=== PATIENT | male | born 1980 | race Caucasian/White ===

== ENCOUNTER 2016-05-28 15:33 | Emergency (ER) | payer OTHER ==
[~2016-05-28] VITALS: Ht 175.3 cm; Wt 64.4 kg
[~2016-05-28 15:33] MED LIST: A/B OTIC15 ML; A/B OTIC15 ML AU; ASPIR 8181 MG PO; COL100 PO; CYMBALTA60 M1 PO; EFFER-K10 MEQ PO; MORPHINE SULFAT30 M6 PO; NOR10T PO; PROAIR; ROB750 PO; SIMVASTATIN10 M1 PO; TRAMADOL HCL50 MG PO
[2016-05-28 18:11] VITALS: BP 101/61
== END 2016-05-28 18:11 | disposition home or self-care (01) ==
LOC: ED 15:33
DX: G43.909 Migraine, unspecified, not intractable, without status migrainosus (principal); Z88.8 Allergy status to other drugs, medicaments and biological substances; Z79.51 Long term (current) use of inhaled steroids
CPT/HCPCS: J1200; J2405; J3010; J7030

== ENCOUNTER 2016-06-13 18:41 | Emergency (ER) | payer OTHER ==
[~2016-06-13] VITALS: Ht 175.3 cm; Wt 64.9 kg
[2016-06-13 21:54] VITALS: BP 97/62
== END 2016-06-13 21:54 | disposition home or self-care (01) ==
LOC: ED 18:41
DX: G43.909 Migraine, unspecified, not intractable, without status migrainosus (principal); Z79.899 Other long term (current) drug therapy; Z88.8 Allergy status to other drugs, medicaments and biological substances
CPT/HCPCS: J1200; J2270; J2405; J7030

== ENCOUNTER 2016-07-03 16:17 | Emergency (ER) | payer OTHER ==
[~2016-07-03] VITALS: Ht 175.3 cm; Wt 64.1 kg
[2016-07-03 18:29] LABS: BASOPHIL % 0.5 % (0-2); PLATELET COUNT 309 x10^3mcL (130-400); RED CELL DISTRIBUTION WIDTH 13.3 % (11.5-14.5)
[2016-07-03 18:38] LABS: CALCIUM 9.3 mg/dL (8.5-10.1); CARBON DIOXIDE 30.2 mmol/L (21-32); CHLORIDE SERUM 104 mmol/L (98-107); GFR1 > 60 mL/min; GLUCOSE SERUM 85 mg/dL (74-106); POTASSIUM SERUM 3.5 mmol/L (3.5-5.1); SODIUM SERUM 143 mmol/L (136-145)
[2016-07-03 18:42] LABS: ALBUMIN 4.3 g/dL (3.4-5.0); ALKALINE PHOSPHATASE 67 U/L (46-116); ALT/SGPT 20 U/L (16-63); AMYLASE 37 U/L (25-115); AST/SGOT 19 U/L (15-37); BILIRUBIN TOTAL 1.8 mg/dL (0.20-1.00); LIPASE 134 IU/L (73-393); TOTAL PROTEIN, SERUM 7.7 g/dL (6.4-8.2)
[2016-07-03 20:21] VITALS: BP 103/62
== END 2016-07-03 20:21 | disposition home or self-care (01) ==
LOC: ED 16:17
PROVIDERS: Emergency Medicine
DX: G43.909 Migraine, unspecified, not intractable, without status migrainosus (principal); G89.29 Other chronic pain; Z88.8 Allergy status to other drugs, medicaments and biological substances
CPT/HCPCS: 83880; J0780; J1200; J2405; J3010

== ENCOUNTER 2016-07-23 10:18 | Emergency (ER) | payer OTHER ==
[~2016-07-23] VITALS: Ht 175.3 cm; Wt 64.0 kg
[2016-07-23 11:57] VITALS: BP 99/62
== END 2016-07-23 11:57 | disposition home or self-care (01) ==
LOC: ED 10:18
DX: G43.909 Migraine, unspecified, not intractable, without status migrainosus (principal); D68.61 Antiphospholipid syndrome; Z88.8 Allergy status to other drugs, medicaments and biological substances
CPT/HCPCS: J0780; J1200; J1885; J3010

== ENCOUNTER 2016-07-26 21:54 | Emergency (ER) | payer OTHER ==
[2016-07-26 23:00] VITALS: BP 134/72
== END 2016-07-26 23:00 | disposition home or self-care (01) ==
LOC: ED 21:54
DX: R51 Headache (principal); G89.29 Other chronic pain; R11.0 Nausea; Z86.73 Personal history of transient ischemic attack (TIA), and cerebral infarction without residual deficits; D68.61 Antiphospholipid syndrome; Z88.8 Allergy status to other drugs, medicaments and biological substances
CPT/HCPCS: J1170; Q0162

== ENCOUNTER 2016-08-03 23:31 | Emergency (ER) | payer OTHER ==
[2016-08-04 02:43] VITALS: BP 98/68
== END 2016-08-04 02:43 | disposition home or self-care (01) ==
LOC: ED 23:31
DX: G43.909 Migraine, unspecified, not intractable, without status migrainosus (principal); D68.61 Antiphospholipid syndrome; Z86.73 Personal history of transient ischemic attack (TIA), and cerebral infarction without residual deficits; Z88.8 Allergy status to other drugs, medicaments and biological substances
CPT/HCPCS: J1200; J1885; J2405; J3010; J7030

== ENCOUNTER 2016-08-12 15:24 | Inpatient (IN) | payer OTHER ==
[~2016-08-12] VITALS: Ht 175.3 cm; Wt 70.1 kg
[2016-08-12 16:57] LABS: BASOPHIL % 0.4 % (0-2); PLATELET COUNT 281 x10^3mcL (130-400); RED CELL DISTRIBUTION WIDTH 13.1 % (11.5-14.5)
[2016-08-12 16:58] LABS: CARBON DIOXIDE 28.1 mmol/L (21-32); CHLORIDE SERUM 106 mmol/L (98-107); GFR1 > 60 mL/min; GLUCOSE SERUM 129 mg/dL (74-106); POTASSIUM SERUM 3.7 mmol/L (3.5-5.1); SODIUM SERUM 142 mmol/L (136-145)
[2016-08-12 17:03] LABS: ALBUMIN 3.7 g/dL (3.4-5.0); ALKALINE PHOSPHATASE 53 U/L (46-116); ALT/SGPT 17 U/L (16-63); AST/SGOT 16 U/L (15-37); BILIRUBIN TOTAL 0.6 mg/dL (0.20-1.00); CHOLESTEROL 144 mg/dL (<200); HDL CHOLESTEROL 56 mg/dL (40-60); TOTAL PROTEIN, SERUM 6.8 g/dL (6.4-8.2)
[2016-08-12] MEDS ORDERED: CITALOPRAM HYDR20 M1 PO (17:35)
[2016-08-12 18:39] LABS: CHOLESTEROL/HDL RATIO 2.2; T3 TOTAL 1.17 ng/mL
[2016-08-12 18:40] LABS: FREE T4 1.15 ng/dL (0.76-1.46); FREE THYROXINE INDEX 2.7 ug/dL (1.4-4.5); T4(THYROXINE) 7.3 ug/dL (4.7-13.3)
[2016-08-12 18:58] VITALS: BP 106/72
[2016-08-12 21:50] VITALS: BP 121/65
[2016-08-12 23:03] LABS: microscopic required? NO
[2016-08-12 23:10] LABS: UA SPECIFIC GRAVITY 1.025 (1.005-1.035); urine erythrocyte NEGATIVE (NEGATIVE)
[2016-08-12 23:44] LABS: AMPHETAMINE QUAL UR NONE DETECTED (NEG <=1000)
[2016-08-13 06:25] LABS: PLATELET COUNT 288 x10^3mcL (130-400); RED CELL DISTRIBUTION WIDTH 13.4 % (11.5-14.5)
[2016-08-13 06:30] LABS: CALCIUM 9.1 mg/dL (8.5-10.1); CARBON DIOXIDE 24.1 mmol/L (21-32); CHLORIDE SERUM 106 mmol/L (98-107); CREATININE SERUM 0.8 mg/dL (0.7-1.3); GFR1 > 60 mL/min; GLUCOSE SERUM 149 mg/dL (74-106); MAGNESIUM 1.9 mg/dL (1.8-2.4); PHOSPHOROUS 1.7 mg/dL (2.5-4.9); SODIUM SERUM 140 mmol/L (136-145)
[2016-08-13 06:39] VITALS: BP 97/66
[2016-08-13 06:44] LABS: BASOPHIL % 0 % (0-2)
[2016-08-13 09:00] VITALS: BP 109/65
[2016-08-13 13:00] VITALS: BP 103/64
[2016-08-13 17:45] VITALS: BP 119/76
[2016-08-13 21:09] VITALS: BP 115/60
[2016-08-14 06:08] VITALS: BP 106/62
[2016-08-14 06:15] LABS: PLATELET COUNT 291 x10^3mcL (130-400); RED CELL DISTRIBUTION WIDTH 13.4 % (11.5-14.5)
[2016-08-14 06:23] LABS: CARBON DIOXIDE 24.4 mmol/L (21-32); CHLORIDE SERUM 106 mmol/L (98-107); CREATININE SERUM 0.8 mg/dL (0.7-1.3); GFR1 > 60 mL/min; GLUCOSE SERUM 135 mg/dL (74-106); MAGNESIUM 2.1 mg/dL (1.8-2.4); PHOSPHOROUS 4.6 mg/dL (2.5-4.9); POTASSIUM SERUM 3.9 mmol/L (3.5-5.1); SODIUM SERUM 141 mmol/L (136-145)
[2016-08-14 07:08] LABS: BASOPHIL % 0 % (0-2)
[2016-08-14 09:35] VITALS: BP 114/60
[2016-08-14] MEDS ORDERED: CLA10 PO (09:42)
[2016-08-14] MEDS ORDERED: SUMATRIPTAN SUC50 M1 PO (09:43)
[2016-08-14] MEDS ORDERED: MONTELUKAST SOD10 M1 PO (09:46)
[2016-08-14] MEDS ORDERED: MEDDP PO (09:46)
[2016-08-14 10:46] VITALS: BP 114/60
== END 2016-08-14 12:30 | disposition home or self-care (01) | DRG 189 ==
LOC: ED 15:24 → MU 17:16 → DU 17:16 → MU 08-13 14:40
PROVIDERS: Emergency Medicine; ADMIT Family Medicine
DX: J96.01 Acute respiratory failure with hypoxia (principal); J45.901 Unspecified asthma with (acute) exacerbation; D68.61 Antiphospholipid syndrome; G43.909 Migraine, unspecified, not intractable, without status migrainosus; G40.909 Epilepsy, unspecified, not intractable, without status epilepticus; E83.39 Other disorders of phosphorus metabolism; Z91.14 Patient's other noncompliance with medication regimen; Z86.73 Personal history of transient ischemic attack (TIA), and cerebral infarction without residual deficits; Z88.8 Allergy status to other drugs, medicaments and biological substances; Z79.82 Long term (current) use of aspirin; Z83.3 Family history of diabetes mellitus
CPT/HCPCS: 36600; 83880; 84439; 85378; 94150; J2270; J2405; J2920; J2930; J7030; J7613; J7620; J7644

== ENCOUNTER 2016-09-17 20:00 | Emergency (ER) | payer OTHER ==
[~2016-09-17 20:00] MED LIST changes: +CITALOPRAM HYDR20 M1 PO; +CLA10 PO; +MEDDP PO; +MONTELUKAST SOD10 M1 PO; +SUMATRIPTAN SUC50 M1 PO
[2016-09-18 00:47] VITALS: BP 95/57
== END 2016-09-18 00:47 | disposition home or self-care (01) ==
LOC: ED 20:00
DX: G43.909 Migraine, unspecified, not intractable, without status migrainosus (principal); E86.0 Dehydration; J45.909 Unspecified asthma, uncomplicated; Z88.8 Allergy status to other drugs, medicaments and biological substances; Z86.73 Personal history of transient ischemic attack (TIA), and cerebral infarction without residual deficits
CPT/HCPCS: J1200; J1885; J2405; J3010; J7030

== ENCOUNTER 2016-10-07 01:11 | Emergency (ER) | payer OTHER ==
[2016-10-07 07:09] VITALS: BP 96/59
== END 2016-10-07 07:11 | disposition home or self-care (01) ==
LOC: ED 01:11
DX: G43.909 Migraine, unspecified, not intractable, without status migrainosus (principal); D68.61 Antiphospholipid syndrome; Z79.891 Long term (current) use of opiate analgesic; Z79.899 Other long term (current) drug therapy; Z88.8 Allergy status to other drugs, medicaments and biological substances
CPT/HCPCS: J1200; J1885; J2405; J3010; J7030

== ENCOUNTER 2016-10-16 20:17 | Emergency (ER) | payer OTHER ==
[2016-10-16 23:49] VITALS: BP 108/65
== END 2016-10-16 23:49 | disposition home or self-care (01) ==
LOC: ED 20:17
DX: G43.909 Migraine, unspecified, not intractable, without status migrainosus (principal); Z88.8 Allergy status to other drugs, medicaments and biological substances
CPT/HCPCS: J1170; J1885; Q0162

== ENCOUNTER 2016-10-17 13:48 | Emergency (ER) | payer OTHER ==
[2016-10-17 17:31] LABS: BASOPHIL % 0.4 % (0-2); PLATELET COUNT 302 x10^3mcL (130-400)
[2016-10-17 17:38] LABS: CALCIUM 9.2 mg/dL (8.5-10.1); CARBON DIOXIDE 31.1 mmol/L (21-32); CHLORIDE SERUM 102 mmol/L (98-107); CREATININE SERUM 0.9 mg/dL (0.7-1.3); GFR1 > 60 mL/min; GLUCOSE SERUM 98 mg/dL (74-106); POTASSIUM SERUM 3.8 mmol/L (3.5-5.1); SODIUM SERUM 143 mmol/L (136-145)
[2016-10-17 17:43] LABS: ALBUMIN 4.2 g/dL (3.4-5.0); ALKALINE PHOSPHATASE 59 U/L (46-116); ALT/SGPT 28 U/L (16-63); AMYLASE 39 U/L (25-115); AST/SGOT 23 U/L (15-37); BILIRUBIN TOTAL 1.2 mg/dL (0.20-1.00); LIPASE 137 IU/L (73-393); TOTAL PROTEIN, SERUM 7.7 g/dL (6.4-8.2)
[2016-10-17 18:47] VITALS: BP 110/64
== END 2016-10-17 18:47 | disposition home or self-care (01) ==
LOC: ED 13:48
PROVIDERS: Emergency Medicine
DX: G43.909 Migraine, unspecified, not intractable, without status migrainosus (principal); J98.01 Acute bronchospasm; J45.909 Unspecified asthma, uncomplicated; Z88.8 Allergy status to other drugs, medicaments and biological substances
CPT/HCPCS: J1170; J2405; J7030; J7613; J7644

== ENCOUNTER 2016-11-14 09:58 | Emergency (ER) | payer OTHER ==
[~2016-11-14] VITALS: Ht 175.3 cm; Wt 61.2 kg
[2016-11-14 13:15] VITALS: BP 103/67
== END 2016-11-14 10:13 | disposition home or self-care (01) ==
LOC: ED 09:58
DX: G43.909 Migraine, unspecified, not intractable, without status migrainosus (principal); Z88.8 Allergy status to other drugs, medicaments and biological substances
CPT/HCPCS: J1170; J1200; J1885; J2405; J7030

== ENCOUNTER 2016-12-21 23:16 | Emergency (ER) | payer OTHER ==
[2016-12-22 03:31] VITALS: BP 100/58
== END 2016-12-22 03:31 | disposition home or self-care (01) ==
LOC: ED 23:16
DX: G43.909 Migraine, unspecified, not intractable, without status migrainosus (principal); Z88.8 Allergy status to other drugs, medicaments and biological substances
CPT/HCPCS: J1170; J2405; J3010; J7030; Q0162

== ENCOUNTER 2017-01-02 17:28 | Emergency (ER) | payer OTHER ==
[~2017-01-02] VITALS: Ht 175.3 cm; Wt 61.5 kg
[2017-01-02 20:23] VITALS: BP 119/85
== END 2017-01-02 20:24 | disposition home or self-care (01) ==
LOC: ED 17:28
DX: G43.909 Migraine, unspecified, not intractable, without status migrainosus (principal); G89.29 Other chronic pain; R11.10 Vomiting, unspecified; J45.909 Unspecified asthma, uncomplicated; D68.61 Antiphospholipid syndrome; Z88.8 Allergy status to other drugs, medicaments and biological substances; Z86.73 Personal history of transient ischemic attack (TIA), and cerebral infarction without residual deficits
CPT/HCPCS: J1170; J1200; J2405; J7030

== ENCOUNTER 2017-01-03 00:21 | Emergency (ER) | payer OTHER ==
[~2017-01-03] VITALS: Ht 175.3 cm; Wt 61.7 kg
[2017-01-03 07:26] VITALS: BP 125/85
== END 2017-01-03 07:00 | disposition home or self-care (01) ==
LOC: ED 00:21
DX: G43.909 Migraine, unspecified, not intractable, without status migrainosus (principal); J45.909 Unspecified asthma, uncomplicated; D68.61 Antiphospholipid syndrome; Z88.8 Allergy status to other drugs, medicaments and biological substances; Z86.73 Personal history of transient ischemic attack (TIA), and cerebral infarction without residual deficits
CPT/HCPCS: J1100; J3490

== ENCOUNTER 2017-01-22 16:29 | Emergency (ER) | payer OTHER ==
[~2017-01-22] VITALS: Ht 175.3 cm; Wt 59.4 kg
[2017-01-22 20:54] VITALS: BP 125/86
== END 2017-01-22 20:57 | disposition home or self-care (01) ==
LOC: ED 16:29
DX: G43.909 Migraine, unspecified, not intractable, without status migrainosus (principal); Z88.8 Allergy status to other drugs, medicaments and biological substances
CPT/HCPCS: J1885; J2405; J3010; J7030

== ENCOUNTER 2017-02-22 17:40 | Emergency (ER) | payer SELFPAY ==
[~2017-02-22] VITALS: Ht 175.3 cm; Wt 64.0 kg
[2017-02-22 18:02] VITALS: Ht 175.3 cm; Wt 64.0 kg
[2017-02-23 00:17] VITALS: BP 100/64
== END 2017-02-23 00:17 | disposition home or self-care (01) ==
LOC: ED 17:40
DX: G43.909 Migraine, unspecified, not intractable, without status migrainosus (principal); J45.909 Unspecified asthma, uncomplicated; Z88.8 Allergy status to other drugs, medicaments and biological substances
CPT/HCPCS: J1200; J1885; J2405; J3010; J7030

== ENCOUNTER 2017-03-19 17:33 | Emergency (ER) | payer BC ==
[~2017-03-19] VITALS: Ht 175.3 cm; Wt 64.9 kg
[2017-03-19 18:13] VITALS: Ht 175.3 cm; Wt 64.9 kg
[2017-03-19 23:54] VITALS: BP 126/79
== END 2017-03-19 23:54 | disposition home or self-care (01) ==
LOC: ED 17:33
DX: G43.909 Migraine, unspecified, not intractable, without status migrainosus (principal); D68.61 Antiphospholipid syndrome; J45.909 Unspecified asthma, uncomplicated; Z88.8 Allergy status to other drugs, medicaments and biological substances; Z86.73 Personal history of transient ischemic attack (TIA), and cerebral infarction without residual deficits
CPT/HCPCS: J3490; J7030

== ENCOUNTER 2017-03-30 03:08 | Emergency (ER) | payer BC ==
[~2017-03-30] VITALS: Ht 180.3 cm; Wt 79.8 kg
[2017-03-30 03:18] VITALS: Ht 180.3 cm; Wt 79.8 kg
[2017-03-30 08:29] VITALS: BP 121/74
== END 2017-03-30 08:29 | disposition home or self-care (01) ==
LOC: ED 03:08
DX: G43.909 Migraine, unspecified, not intractable, without status migrainosus (principal)
CPT/HCPCS: J1170; J2405; J3490; J7030

== ENCOUNTER 2017-05-13 14:31 | Inpatient (IN) | payer BC ==
[~2017-05-13] VITALS: Ht 180.3 cm; Wt 69.9 kg
[2017-05-13] VITALS (9 sets, daily range): BP systolic 94–152; BP diastolic 59–93
[2017-05-13 16:00] LABS: BASOPHIL % 0.7 % (0-2); PLATELET COUNT 291 x10^3mcL (130-400)
[2017-05-13 16:19] LABS: CALCIUM 8.7 mg/dL (8.5-10.1); CARBON DIOXIDE 28.1 mmol/L (21-32); CHLORIDE SERUM 101 mmol/L (98-107); GFR1 > 60 mL/min; GLUCOSE SERUM 96 mg/dL (74-106); POTASSIUM SERUM 3.2 mmol/L (3.5-5.1); SODIUM SERUM 141 mmol/L (136-145)
[2017-05-13 16:24] LABS: ALBUMIN 4.2 g/dL (3.4-5.0); ALKALINE PHOSPHATASE 52 U/L (46-116); ALT/SGPT 23 U/L (16-63); AST/SGOT 20 U/L (15-37); TOTAL PROTEIN, SERUM 7.1 g/dL (6.4-8.2)
[2017-05-13 18:20] LABS: CHOLESTEROL/HDL RATIO 3.2; MAGNESIUM 2.1 mg/dL (1.8-2.4); PHOSPHOROUS 3.2 mg/dL (2.5-4.9)
[2017-05-13 18:29] LABS: FREE T4 1.12 ng/dL (0.76-1.46); FREE THYROXINE INDEX 3.4 ug/dL (1.4-4.5); T4(THYROXINE) 8.9 ug/dL (4.7-13.3)
[2017-05-14] VITALS (18 sets, daily range): BP systolic 95–114; BP diastolic 52–72
[2017-05-14 02:03] LABS: UA SPECIFIC GRAVITY >=1.030 (1.005-1.035); microscopic required? YES; urine erythrocyte 3+ (NEGATIVE)
[2017-05-14 05:49] LABS: CALCIUM 8.2 mg/dL (8.5-10.1); CARBON DIOXIDE 26.7 mmol/L (21-32); CHLORIDE SERUM 103 mmol/L (98-107); CREATININE SERUM 0.8 mg/dL (0.7-1.3); GFR1 > 60 mL/min; GLUCOSE SERUM 126 mg/dL (74-106); MAGNESIUM 2.3 mg/dL (1.8-2.4); PHOSPHOROUS 3.7 mg/dL (2.5-4.9); POTASSIUM SERUM 4.4 mmol/L (3.5-5.1); SODIUM SERUM 139 mmol/L (136-145)
[2017-05-14 05:50] LABS: BASOPHIL % 0.2 % (0-2); PLATELET COUNT 255 x10^3mcL (130-400); RED CELL DISTRIBUTION WIDTH 12.7 % (11.5-14.5)
[2017-05-14 09:13] LABS: T3 TOTAL 1.06 ng/mL
[2017-05-15] VITALS (11 sets, daily range): BP systolic 80–133; BP diastolic 36–83
[2017-05-15 04:43] LABS: BASOPHIL % 0.1 % (0-2); PLATELET COUNT 262 x10^3mcL (130-400); RED CELL DISTRIBUTION WIDTH 13.1 % (11.5-14.5)
[2017-05-15 05:20] LABS: CALCIUM 8.2 mg/dL (8.5-10.1); CARBON DIOXIDE 25.8 mmol/L (21-32); CHLORIDE SERUM 106 mmol/L (98-107); CREATININE SERUM 0.8 mg/dL (0.7-1.3); GFR1 > 60 mL/min; GLUCOSE SERUM 144 mg/dL (74-106); MAGNESIUM 2.3 mg/dL (1.8-2.4); PHOSPHOROUS 3.6 mg/dL (2.5-4.9); POTASSIUM SERUM 4.1 mmol/L (3.5-5.1); SODIUM SERUM 139 mmol/L (136-145)
[2017-05-16 04:00] VITALS: BP 95/51
[2017-05-16 05:32] LABS: BASOPHIL % 0.2 % (0-2); PLATELET COUNT 245 x10^3mcL (130-400); RED CELL DISTRIBUTION WIDTH 13.3 % (11.5-14.5)
[2017-05-16 06:10] LABS: CALCIUM 8.4 mg/dL (8.5-10.1); CARBON DIOXIDE 25.7 mmol/L (21-32); CHLORIDE SERUM 108 mmol/L (98-107); CREATININE SERUM 0.7 mg/dL (0.7-1.3); GFR1 > 60 mL/min; GLUCOSE SERUM 147 mg/dL (74-106); MAGNESIUM 2.2 mg/dL (1.8-2.4); PHOSPHOROUS 3.5 mg/dL (2.5-4.9); POTASSIUM SERUM 3.7 mmol/L (3.5-5.1); SODIUM SERUM 143 mmol/L (136-145)
[2017-05-16 08:00] VITALS: BP 107/58
[2017-05-16 11:12] VITALS: Ht 180.3 cm; Wt 69.9 kg
[2017-05-16 17:50] VITALS: BP 109/62
[2017-05-16 21:18] VITALS: BP 108/62
[2017-05-17 05:21] VITALS: BP 119/69
[2017-05-17 05:22] VITALS: BP 131/60
[2017-05-17 06:17] LABS: PLATELET COUNT 246 x10^3mcL (130-400); RED CELL DISTRIBUTION WIDTH 12.9 % (11.5-14.5)
[2017-05-17 06:21] LABS: BASOPHIL % 0 % (0-2)
[2017-05-17 06:54] LABS: CALCIUM 8.7 mg/dL (8.5-10.1); CHLORIDE SERUM 107 mmol/L (98-107); CREATININE SERUM 0.7 mg/dL (0.7-1.3); GFR1 > 60 mL/min; GLUCOSE SERUM 147 mg/dL (74-106); MAGNESIUM 2.4 mg/dL (1.8-2.4); PHOSPHOROUS 3.3 mg/dL (2.5-4.9); POTASSIUM SERUM 3.3 mmol/L (3.5-5.1); SODIUM SERUM 142 mmol/L (136-145)
[2017-05-17 08:28] VITALS: BP 121/65
[2017-05-17] MEDS ORDERED: CAL40 PO (13:10)
[2017-05-17] MEDS ORDERED: MEDDP PO (13:14)
[2017-05-17] MEDS ORDERED: NOR10T PO (13:16)
[2017-05-17 13:20] VITALS: BP 124/79
[2017-05-17 14:26] VITALS: BP 124/79
== END 2017-05-17 15:42 | disposition home or self-care (01) | DRG 208 ==
LOC: ED 14:31 → IC 16:56 → DU 05-16 14:02
PROVIDERS: Emergency Medicine; Family Medicine; Family Medicine Sports Medicine
PROC: 0BH17EZ Insertion of Endotracheal Airway into Trachea, Via Natural or Artificial Opening (ICD-10-PCS; principal; 2017-05-13)
PROC: 5A1945Z Respiratory Ventilation, 24-96 Consecutive Hours (ICD-10-PCS; 2017-05-13)
PROC: 02HV33Z Insertion of Infusion Device into Superior Vena Cava, Percutaneous Approach (ICD-10-PCS; 2017-05-14)
DX: J96.01 Acute respiratory failure with hypoxia (principal); N17.0 Acute kidney failure with tubular necrosis; J45.901 Unspecified asthma with (acute) exacerbation; D68.61 Antiphospholipid syndrome; I16.0 Hypertensive urgency; E87.6 Hypokalemia; G43.909 Migraine, unspecified, not intractable, without status migrainosus; F32.9 Major depressive disorder, single episode, unspecified; J96.02 Acute respiratory failure with hypercapnia; G40.909 Epilepsy, unspecified, not intractable, without status epilepticus; F17.210 Nicotine dependence, cigarettes, uncomplicated; R31.9 Hematuria, unspecified; Z86.73 Personal history of transient ischemic attack (TIA), and cerebral infarction without residual deficits; Z88.8 Allergy status to other drugs, medicaments and biological substances; Z86.718 Personal history of other venous thrombosis and embolism; Z83.3 Family history of diabetes mellitus; Z82.49 Family history of ischemic heart disease and other diseases of the circulatory system
CPT/HCPCS: 31500; 36556; 36600; 83880; 84439; 92610-GN; 94150; A4628; C9113; J0171; J0330; J1170; J1200; J1642; J1644; J1885; J1956; J2060; J2250; J2270; J2405; J2800; J2920; J2930; J3010; J3030; J3475; J3480; J3490; J7030; J7613; J7620; J7626; J7644; Q0092

== ENCOUNTER 2017-06-11 15:17 | Inpatient (IN) | payer BC ==
[~2017-06-11] VITALS: Ht 175.3 cm; Wt 74.2 kg
[~2017-06-11 15:17] MED LIST changes: +CAL40 PO
[2017-06-11 15:22] VITALS: Ht 175.3 cm; Wt 74.2 kg
[2017-06-11 16:01] LABS: BASOPHIL % 0.3 % (0-2); PLATELET COUNT 325 x10^3mcL (130-400); RED CELL DISTRIBUTION WIDTH 13.7 % (11.5-14.5)
[2017-06-11 16:50] LABS: CARBON DIOXIDE 31.3 mmol/L (21-32); CHLORIDE SERUM 102 mmol/L (98-107); GFR1 > 60 mL/min; GLUCOSE SERUM 129 mg/dL (74-106); POTASSIUM SERUM 3.7 mmol/L (3.5-5.1); SODIUM SERUM 141 mmol/L (136-145)
[2017-06-11 16:57] LABS: ALBUMIN 4.1 g/dL (3.4-5.0); ALKALINE PHOSPHATASE 53 U/L (46-116); ALT/SGPT 21 U/L (16-63); AST/SGOT 17 U/L (15-37); BILIRUBIN TOTAL 1.2 mg/dL (0.20-1.00); TOTAL PROTEIN, SERUM 7.1 g/dL (6.4-8.2)
[2017-06-11 18:26] LABS: T3 TOTAL 1.13 ng/mL
[2017-06-11 18:28] LABS: FREE T4 0.93 ng/dL (0.76-1.46); FREE THYROXINE INDEX 2.8 ug/dL (1.4-4.5); T4(THYROXINE) 7.9 ug/dL (4.7-13.3)
[2017-06-11 18:45] LABS: CHOLESTEROL/HDL RATIO 2.7; MAGNESIUM 2.3 mg/dL (1.8-2.4)
[2017-06-11 18:48] VITALS: BP 117/79
[2017-06-11 19:04] VITALS: BP 117/79
[2017-06-11 20:10] VITALS: BP 106/60
[2017-06-12 03:50] LABS: microscopic required? NO
[2017-06-12 04:24] LABS: urine erythrocyte NEGATIVE (NEGATIVE)
[2017-06-12 05:08] VITALS: BP 119/68
[2017-06-12 08:42] LABS: PLATELET COUNT 325 x10^3mcL (130-400); RED CELL DISTRIBUTION WIDTH 13.7 % (11.5-14.5)
[2017-06-12 08:45] LABS: BASOPHIL % 0 % (0-2)
[2017-06-12 09:09] LABS: CALCIUM 8.8 mg/dL (8.5-10.1); CARBON DIOXIDE 25.4 mmol/L (21-32); CHLORIDE SERUM 103 mmol/L (98-107); CREATININE SERUM 0.9 mg/dL (0.7-1.3); GFR1 > 60 mL/min; GLUCOSE SERUM 136 mg/dL (74-106); PHOSPHOROUS 3.5 mg/dL (2.5-4.9); POTASSIUM SERUM 3.7 mmol/L (3.5-5.1); SODIUM SERUM 138 mmol/L (136-145)
[2017-06-12 09:50] VITALS: BP 107/61
[2017-06-12 12:15] LABS: AMPHETAMINE QUAL UR NONE DETECTED (NEG <=1000)
[2017-06-12 12:47] VITALS: BP 94/57
[2017-06-12 17:19] VITALS: BP 96/50
[2017-06-12 21:19] VITALS: BP 115/78
[2017-06-13 05:43] VITALS: BP 98/50
[2017-06-13 06:22] LABS: PLATELET COUNT 302 x10^3mcL (130-400); RED CELL DISTRIBUTION WIDTH 13.8 % (11.5-14.5)
[2017-06-13 06:27] LABS: CALCIUM 8.4 mg/dL (8.5-10.1); CARBON DIOXIDE 26.5 mmol/L (21-32); CHLORIDE SERUM 109 mmol/L (98-107); CREATININE SERUM 0.8 mg/dL (0.7-1.3); GFR1 > 60 mL/min; GLUCOSE SERUM 131 mg/dL (74-106); POTASSIUM SERUM 4.2 mmol/L (3.5-5.1); SODIUM SERUM 143 mmol/L (136-145)
[2017-06-13 06:36] LABS: BASOPHIL % 0 % (0-2)
[2017-06-13] MEDS ORDERED: MONTELUKAST SOD10 M1 PO (07:13)
[2017-06-13] MEDS ORDERED: MEDDP PO (07:14)
[2017-06-13] MEDS ORDERED: VENTOLIN H0.09 MG/A1 INH (07:24)
[2017-06-13] MEDS ORDERED: IPRATROPIUM BROM3 M2 HHN (07:24)
[2017-06-13] MEDS ORDERED: AEROECLIPSE1 EACH MC (07:24)
[2017-06-13 09:16] VITALS: BP 103/56
[2017-06-13 12:15] VITALS: BP 111/78
[2017-06-13 17:59] VITALS: BP 104/64
[2017-06-13 20:04] VITALS: BP 113/74
[2017-06-14 06:02] VITALS: BP 96/53
[2017-06-14 09:54] VITALS: BP 114/60
[2017-06-14 13:14] VITALS: BP 118/71
[2017-06-14 15:48] VITALS: BP 118/71
== END 2017-06-14 17:45 | disposition home or self-care (01) | DRG 203 ==
LOC: ED 15:17 → DU 17:45 → EDBEDREQ 17:46 → DU 18:37
PROVIDERS: Emergency Medicine; Family Medicine
DX: J45.901 Unspecified asthma with (acute) exacerbation (principal); G43.909 Migraine, unspecified, not intractable, without status migrainosus; F32.9 Major depressive disorder, single episode, unspecified; E80.6 Other disorders of bilirubin metabolism; R73.03 Prediabetes; Z86.73 Personal history of transient ischemic attack (TIA), and cerebral infarction without residual deficits; Z88.8 Allergy status to other drugs, medicaments and biological substances
CPT/HCPCS: 36600; 83880; 84439; 94150; J1644; J1885; J2270; J2920; J2930; J7030; J7613; J7620; J7644; Q0092; Q9967

== ENCOUNTER 2017-09-19 17:43 | Emergency (ER) | payer BC ==
[~2017-09-19] VITALS: Ht 175.3 cm; Wt 67.8 kg
[~2017-09-19 17:43] MED LIST changes: +AEROECLIPSE1 EACH MC; +IPRATROPIUM BROM3 M2 HHN; +VENTOLIN H0.09 MG/A1 INH
[2017-09-19 17:47] VITALS: Ht 175.3 cm; Wt 67.8 kg
[2017-09-19 19:22] VITALS: BP 116/75
== END 2017-09-19 19:22 | disposition home or self-care (01) ==
LOC: ED 17:43
DX: G43.909 Migraine, unspecified, not intractable, without status migrainosus (principal); J45.909 Unspecified asthma, uncomplicated; Z88.8 Allergy status to other drugs, medicaments and biological substances; Z86.73 Personal history of transient ischemic attack (TIA), and cerebral infarction without residual deficits
CPT/HCPCS: J1885; J3010; Q0162

== ENCOUNTER 2017-10-05 05:12 | Emergency (ER) | payer BC ==
[~2017-10-05] VITALS: Ht 175.3 cm; Wt 68.0 kg
[2017-10-05 05:15] VITALS: Ht 175.3 cm; Wt 68.0 kg
[2017-10-05 08:39] VITALS: BP 135/75
== END 2017-10-05 08:39 | disposition home or self-care (01) ==
LOC: ED 05:12
DX: G43.909 Migraine, unspecified, not intractable, without status migrainosus (principal); R11.2 Nausea with vomiting, unspecified; J45.909 Unspecified asthma, uncomplicated; Z86.73 Personal history of transient ischemic attack (TIA), and cerebral infarction without residual deficits; Z88.8 Allergy status to other drugs, medicaments and biological substances
CPT/HCPCS: J1885; J2270; J2405; J7030

== ENCOUNTER 2017-10-13 02:34 | Inpatient (IN) | payer BC ==
[~2017-10-13] VITALS: Ht 175.3 cm; Wt 67.7 kg
[2017-10-13 02:35] VITALS: Ht 175.3 cm; Wt 67.7 kg
[2017-10-13 03:09] LABS: BASOPHIL % 0.6 % (0-2); PLATELET COUNT 285 x10^3mcL (130-400); RED CELL DISTRIBUTION WIDTH 12.9 % (11.5-14.5)
[2017-10-13 03:15] LABS: CALCIUM 8.8 mg/dL (8.5-10.1); CARBON DIOXIDE 25.8 mmol/L (21-32); CHLORIDE SERUM 108 mmol/L (98-107); CREATININE SERUM 0.9 mg/dL (0.7-1.3); GFR1 > 60 mL/min; GLUCOSE SERUM 107 mg/dL (74-106); POTASSIUM SERUM 3.5 mmol/L (3.5-5.1); SODIUM SERUM 140 mmol/L (136-145)
[2017-10-13 03:20] LABS: ALBUMIN 3.5 g/dL (3.4-5.0); ALKALINE PHOSPHATASE 70 U/L (46-116); ALT/SGPT 25 U/L (16-63); AST/SGOT 20 U/L (15-37); BILIRUBIN TOTAL 0.43 mg/dL (0.20-1.00); TOTAL PROTEIN, SERUM 6.6 g/dL (6.4-8.2)
[2017-10-13 04:28] LABS: CHOLESTEROL/HDL RATIO 2.5; MAGNESIUM 2.2 mg/dL (1.8-2.4); PHOSPHOROUS 4.5 mg/dL (2.5-4.9)
[2017-10-13] MEDS ORDERED: TRAMADOL HCL50 MG PO (04:29)
[2017-10-13] MEDS ORDERED: TRAMADOL HCL50 MG (04:29)
[2017-10-13 05:04] VITALS: BP 114/61
[2017-10-13 07:52] VITALS: BP 99/63
[2017-10-13 11:46] VITALS: BP 116/61
[2017-10-13 14:54] VITALS: BP 116/61
[2017-10-13 18:23] LABS: microscopic required? NO
[2017-10-13 18:31] VITALS: BP 120/64
[2017-10-13 18:32] LABS: urine erythrocyte NEGATIVE (NEGATIVE)
[2017-10-13 18:40] LABS: AMPHETAMINE QUAL UR NONE DETECTED (See below)
[2017-10-13 20:51] VITALS: BP 117/68
[2017-10-14 05:01] VITALS: BP 113/65
[2017-10-14 05:40] LABS: PLATELET COUNT 321 x10^3mcL (130-400); RED CELL DISTRIBUTION WIDTH 13.1 % (11.5-14.5)
[2017-10-14 05:43] LABS: BASOPHIL % 0 % (0-2)
[2017-10-14 05:55] LABS: CALCIUM 9.3 mg/dL (8.5-10.1); CARBON DIOXIDE 25.2 mmol/L (21-32); CHLORIDE SERUM 97 mmol/L (98-107); GFR1 > 60 mL/min; GLUCOSE SERUM 135 mg/dL (74-106); MAGNESIUM 2.3 mg/dL (1.8-2.4); PHOSPHOROUS 4.7 mg/dL (2.5-4.9); POTASSIUM SERUM 3.7 mmol/L (3.5-5.1); SODIUM SERUM 137 mmol/L (136-145)
[2017-10-14 08:43] VITALS: BP 123/74
[2017-10-14] MEDS ORDERED: VENTOLIN H0.09 MG/A1 HHN ×2 (09:29→09:32)
[2017-10-14] MEDS ORDERED: ALBUTEROL SULFAT3 ML INH ×2 (09:30→09:32)
[2017-10-14] MEDS ORDERED: QVAR REDIHALE10.6 G1 IH ×2 (09:31→09:32)
[2017-10-14] MEDS ORDERED: PREDNISONE20 MG PO (09:43)
[2017-10-14 09:48] VITALS: BP 113/65
[2017-10-14 13:13] VITALS: BP 115/76
== END 2017-10-14 15:40 | disposition home or self-care (01) | DRG 189 ==
LOC: ED 02:34 → EDBEDREQ 04:07 → DU 04:07
PROVIDERS: Emergency Medicine; Family Medicine
DX: J96.01 Acute respiratory failure with hypoxia (principal); J45.901 Unspecified asthma with (acute) exacerbation; D68.61 Antiphospholipid syndrome; G43.909 Migraine, unspecified, not intractable, without status migrainosus; F32.9 Major depressive disorder, single episode, unspecified; J20.9 Acute bronchitis, unspecified; R56.9 Unspecified convulsions; Z88.8 Allergy status to other drugs, medicaments and biological substances; Z86.73 Personal history of transient ischemic attack (TIA), and cerebral infarction without residual deficits; Z79.899 Other long term (current) drug therapy; Z83.3 Family history of diabetes mellitus; Z82.49 Family history of ischemic heart disease and other diseases of the circulatory system; Z91.19 Patient's noncompliance with other medical treatment and regimen
CPT/HCPCS: 36600; 83880; 85378; J1650; J2270; J2920; J2930; J7613; J7620; J7626; Q9967

== ENCOUNTER 2017-10-24 11:42 | Emergency (ER) | payer BC ==
[~2017-10-24] VITALS: Ht 175.3 cm; Wt 70.3 kg
[~2017-10-24 11:42] MED LIST changes: +ALBUTEROL SULFAT3 ML INH; +PREDNISONE20 MG PO; +QVAR REDIHALE10.6 G1 IH; +TRAMADOL HCL50 MG; +VENTOLIN H0.09 MG/A1 HHN
[2017-10-24 11:43] VITALS: Ht 175.3 cm; Wt 70.3 kg
[2017-10-24 16:01] VITALS: BP 114/68
== END 2017-10-24 16:01 | disposition home or self-care (01) ==
LOC: ED 11:42
DX: G43.909 Migraine, unspecified, not intractable, without status migrainosus (principal); J45.909 Unspecified asthma, uncomplicated; Z86.73 Personal history of transient ischemic attack (TIA), and cerebral infarction without residual deficits; Z88.8 Allergy status to other drugs, medicaments and biological substances
CPT/HCPCS: J1200; J1885; J2765; J3010; J3490; J7030

== ENCOUNTER 2017-10-25 16:08 | Emergency (ER) | payer BC ==
[~2017-10-25] VITALS: Ht 175.3 cm; Wt 70.3 kg
[2017-10-25 16:10] VITALS: Ht 175.3 cm; Wt 70.3 kg
[2017-10-25 20:07] VITALS: BP 103/64
== END 2017-10-25 20:07 | disposition home or self-care (01) ==
LOC: ED 16:08
DX: G43.909 Migraine, unspecified, not intractable, without status migrainosus (principal); J45.909 Unspecified asthma, uncomplicated; Z86.73 Personal history of transient ischemic attack (TIA), and cerebral infarction without residual deficits; Z88.8 Allergy status to other drugs, medicaments and biological substances
CPT/HCPCS: J1200; J1885; J3010; Q0162

== ENCOUNTER 2017-11-24 08:39 | Emergency (ER) | payer BC ==
[~2017-11-24] VITALS: Ht 175.3 cm; Wt 66.2 kg
[2017-11-24 08:42] VITALS: Ht 175.3 cm; Wt 66.2 kg
[2017-11-24 09:52] VITALS: BP 122/78
== END 2017-11-24 09:52 | disposition home or self-care (01) ==
LOC: ED 08:39
DX: G43.909 Migraine, unspecified, not intractable, without status migrainosus (principal); J45.909 Unspecified asthma, uncomplicated; R11.2 Nausea with vomiting, unspecified; Z88.8 Allergy status to other drugs, medicaments and biological substances
CPT/HCPCS: J3010; Q0162

== ENCOUNTER 2017-12-20 17:21 | Emergency (ER) | payer BC ==
[~2017-12-20] VITALS: Ht 175.3 cm; Wt 65.8 kg
[2017-12-20 17:33] VITALS: Ht 175.3 cm; Wt 65.8 kg
[2017-12-20 23:00] VITALS: BP 111/73
== END 2017-12-20 23:00 | disposition home or self-care (01) ==
LOC: ED 17:21
DX: R51 Headache (principal); R11.2 Nausea with vomiting, unspecified; Z88.8 Allergy status to other drugs, medicaments and biological substances; J45.909 Unspecified asthma, uncomplicated; Z86.73 Personal history of transient ischemic attack (TIA), and cerebral infarction without residual deficits
CPT/HCPCS: J1885; J3010; Q0162

== ENCOUNTER 2018-01-09 17:26 | Emergency (ER) | payer BC ==
[~2018-01-09] VITALS: Ht 175.3 cm; Wt 66.2 kg
[2018-01-09 17:34] VITALS: Ht 175.3 cm; Wt 66.2 kg
[2018-01-09 20:16] VITALS: BP 103/63
== END 2018-01-09 20:16 | disposition home or self-care (01) ==
LOC: ED 17:26
DX: G43.909 Migraine, unspecified, not intractable, without status migrainosus (principal); J45.909 Unspecified asthma, uncomplicated; G40.909 Epilepsy, unspecified, not intractable, without status epilepticus; D68.61 Antiphospholipid syndrome; F32.9 Major depressive disorder, single episode, unspecified; Z86.73 Personal history of transient ischemic attack (TIA), and cerebral infarction without residual deficits; Z88.8 Allergy status to other drugs, medicaments and biological substances
CPT/HCPCS: J1200; J1885; J3010

== ENCOUNTER 2018-01-18 12:32 | Emergency (ER) | payer BC ==
[~2018-01-18] VITALS: Ht 175.3 cm; Wt 68.0 kg
[2018-01-18 12:46] VITALS: Ht 175.3 cm; Wt 68.0 kg
[2018-01-18 15:53] VITALS: BP 103/64
== END 2018-01-18 15:53 | disposition home or self-care (01) ==
LOC: ED 12:32
DX: G43.909 Migraine, unspecified, not intractable, without status migrainosus (principal); H53.149 Visual discomfort, unspecified; F32.9 Major depressive disorder, single episode, unspecified; J45.909 Unspecified asthma, uncomplicated; Z86.73 Personal history of transient ischemic attack (TIA), and cerebral infarction without residual deficits; Z88.8 Allergy status to other drugs, medicaments and biological substances
CPT/HCPCS: J1200; J2270; J2405; J7030

== ENCOUNTER 2018-01-22 12:36 | Emergency (ER) | payer BC ==
[~2018-01-22] VITALS: Ht 175.3 cm; Wt 66.2 kg
[2018-01-22 13:02] VITALS: Ht 175.3 cm; Wt 66.2 kg
[2018-01-22 15:59] VITALS: BP 100/64
== END 2018-01-22 15:59 | disposition home or self-care (01) ==
LOC: ED 12:36
DX: G43.909 Migraine, unspecified, not intractable, without status migrainosus (principal); Z86.73 Personal history of transient ischemic attack (TIA), and cerebral infarction without residual deficits; D68.61 Antiphospholipid syndrome; J45.909 Unspecified asthma, uncomplicated; F32.9 Major depressive disorder, single episode, unspecified; Z88.8 Allergy status to other drugs, medicaments and biological substances
CPT/HCPCS: J1200; J1885; J2405; J3010; J7030

== ENCOUNTER 2018-08-06 21:11 | Emergency (ER) | payer BC ==
[~2018-08-06] VITALS: Ht 175.3 cm; Wt 70.3 kg
[2018-08-06 21:43] VITALS: Ht 175.3 cm; Wt 70.3 kg
[2018-08-07 00:31] VITALS: BP 104/63
== END 2018-08-07 00:31 | disposition home or self-care (01) ==
LOC: ED 21:11
DX: G43.909 Migraine, unspecified, not intractable, without status migrainosus (principal); R11.2 Nausea with vomiting, unspecified; J45.909 Unspecified asthma, uncomplicated; F32.9 Major depressive disorder, single episode, unspecified; Z88.8 Allergy status to other drugs, medicaments and biological substances; Z86.73 Personal history of transient ischemic attack (TIA), and cerebral infarction without residual deficits
CPT/HCPCS: J1200; J1885; J2270; J7030

== ENCOUNTER 2018-10-06 18:54 | Emergency (ER) | payer BC ==
[~2018-10-06] VITALS: Ht 175.3 cm; Wt 68.5 kg
[2018-10-06 23:45] VITALS: BP 109/75
== END 2018-10-06 23:45 | disposition home or self-care (01) ==
LOC: ED 18:54
DX: G43.909 Migraine, unspecified, not intractable, without status migrainosus (principal); J45.909 Unspecified asthma, uncomplicated; F32.9 Major depressive disorder, single episode, unspecified; Z86.73 Personal history of transient ischemic attack (TIA), and cerebral infarction without residual deficits; Z88.8 Allergy status to other drugs, medicaments and biological substances
CPT/HCPCS: J1200; J1885; J2270; J2405; J7030

== ENCOUNTER 2018-11-13 17:49 | Emergency (ER) | payer BC ==
[~2018-11-13] VITALS: Ht 175.3 cm; Wt 69.4 kg
[2018-11-13 18:08] VITALS: Ht 175.3 cm; Wt 69.4 kg
[2018-11-13 21:47] VITALS: BP 108/76
== END 2018-11-13 21:47 | disposition home or self-care (01) ==
LOC: ED 17:49
DX: G43.909 Migraine, unspecified, not intractable, without status migrainosus (principal); J45.909 Unspecified asthma, uncomplicated; F32.9 Major depressive disorder, single episode, unspecified; Z88.8 Allergy status to other drugs, medicaments and biological substances
CPT/HCPCS: J1885; J2270; Q0162

== ENCOUNTER 2018-11-14 16:45 | Emergency (ER) | payer BC ==
[~2018-11-14] VITALS: Ht 175.3 cm; Wt 69.4 kg
[2018-11-14 17:40] VITALS: Ht 175.3 cm; Wt 69.4 kg
[2018-11-14 22:26] VITALS: BP 101/65
== END 2018-11-14 22:26 | disposition home or self-care (01) ==
LOC: ED 16:45
DX: G43.909 Migraine, unspecified, not intractable, without status migrainosus (principal); R11.2 Nausea with vomiting, unspecified; J45.909 Unspecified asthma, uncomplicated; F32.9 Major depressive disorder, single episode, unspecified; Z86.73 Personal history of transient ischemic attack (TIA), and cerebral infarction without residual deficits; Z88.8 Allergy status to other drugs, medicaments and biological substances
CPT/HCPCS: J1200; J1885; J2270; J2405; J7030

== ENCOUNTER 2019-02-24 19:45 | Emergency (ER) | payer BC ==
[~2019-02-24] VITALS: Ht 172.7 cm; Wt 73.5 kg
[2019-02-24 20:51] VITALS: Ht 172.7 cm; Wt 73.5 kg
[2019-02-25 03:19] VITALS: BP 104/56
== END 2019-02-25 03:19 | disposition home or self-care (01) ==
LOC: ED 19:45
DX: G43.909 Migraine, unspecified, not intractable, without status migrainosus (principal); J45.909 Unspecified asthma, uncomplicated; Z88.8 Allergy status to other drugs, medicaments and biological substances
CPT/HCPCS: J1200; J1885; J2270; J2405; J7030

== ENCOUNTER 2019-04-12 12:52 | Emergency (ER) | payer BC ==
[~2019-04-12] VITALS: Ht 175.3 cm; Wt 72.1 kg
[2019-04-12 13:13] VITALS: Ht 175.3 cm; Wt 72.1 kg
[2019-04-12 17:20] VITALS: BP 110/68
== END 2019-04-12 17:20 | disposition home or self-care (01) ==
LOC: ED 12:52
DX: G43.909 Migraine, unspecified, not intractable, without status migrainosus (principal); J45.909 Unspecified asthma, uncomplicated; Z98.890 Other specified postprocedural states; Z88.8 Allergy status to other drugs, medicaments and biological substances
CPT/HCPCS: J1200; J1885; J2270; J2405; J7030

== ENCOUNTER 2020-03-31 02:26 | Emergency (ER) | payer BC ==
[~2020-03-31] VITALS: Ht 175.3 cm; Wt 72.6 kg
[2020-03-31 02:27] VITALS: Ht 175.3 cm; Wt 72.6 kg
[2020-03-31 05:07] VITALS: BP 107/59
== END 2020-03-31 05:07 | disposition home or self-care (01) ==
LOC: ED 02:26
DX: G43.909 Migraine, unspecified, not intractable, without status migrainosus (principal); J45.909 Unspecified asthma, uncomplicated; Z86.73 Personal history of transient ischemic attack (TIA), and cerebral infarction without residual deficits; Z88.8 Allergy status to other drugs, medicaments and biological substances
CPT/HCPCS: J1200; J1885; J2270; J2405; J7030